=== PATIENT | female | born 1990 | race American Indian/Alaskan Native ===

== ENCOUNTER 2017-04-28 10:21 | Emergency (ER) | payer MEDICAID, OTHER ==
[2017-04-28 10:21] VITALS: BMI 25.7
[2017-04-28 10:32] VITALS: RESP 18
[2017-04-28] MEDS ORDERED: Sodium Chloride 0.9% 1,000 ML IV STA (11:00)
[2017-04-28 11:25] LABS: PH,URINE 5.5 (4.7-8.0); URINE BILIRUBIN NEGATIVE (NEGATIVE); URINE BLOOD MODERATE (NEGATIVE); URINE GLUCOSE (UA) NEGATIVE (NEGATIVE); URINE KETONE NEGATIVE (NEGATIVE); URINE LEUKOCYTE ESTERASE LARGE Leu/uL (NEGATIVE); URINE PROTEIN 100 mg/dL (<30 mg/dL)
[2017-04-28 11:30] LABS: URINE APPEARANCE TURBID (CLEAR); URINE COLOR YELLOW (YELLOW)
--- NOTE | 2017-04-28 11:30 | ED PDOC ---
Arrival/HPI - General Historian: Patient - History of Present Illness Time/Duration: < week Symptom Onset: Gradual Symptom Course: Unchanged Quality: Aching, Cramping Severity Level: 8 Activities at Onset: Rest Context: Home <Xiomy Austin - Last Filed: 04/28/17 13:43> <Ricky Viramontes - Last Filed: 04/29/17 12:52> - General Chief Complaint: Abdominal Pain Time Seen by Provider: 04/28/17 10:35 - History of Present Illness Narrative History of Present Illness (Text): 04/28/17 11:42 This is a 27Y F with PMH of asthma who came to the emergency department for fever, chills, nausea, vomiting and diarrhea x 5 days. She reports she started having fevers 5 days ago. She did not have any sick contacts or recent travel. She then had n/v/d. She is vomiting bile and is not able to tolerate any solid or liquids. Once she has some water she throws up. She also complains of cough and sore throat. Of note, she took Amoxicillin twice daily for 3 days from old medication she had at home as well as OTC cold medication. Today she was to an urgent care and got a Z-pack. She took the first 2 pills and threw them up immediately. Her diarrhea is normal color and watery, but has not had any BM for a few days since she has not been eating. She denies CP, SOB, numbness/ tingling, vision changes. 04/28/17 11:56 (Xiomy Austin) Past Medical History - Provider Review Nursing Documentation Reviewed: Yes - Infectious Disease Hx of Infectious Diseases: None - Cardiac Hx Cardiac Disorders: No - Pulmonary Hx Asthma: Yes - Neurological Hx Neurological Disorder: No - HEENT Hx HEENT Disorder: No - Renal Hx Renal Disorder: No - Endocrine/Metabolic Hx Endocrine Disorders: No - Hematological/Oncological Hx Blood Disorders: No - Integumentary Hx Dermatological Disorder: No - Musculoskeletal/Rheumatological Hx Musculoskeletal Disorders: No - Gastrointestinal Hx Gastrointestinal Disorders: No - Genitourinary/Gynecological Hx Genitourinary Disorders: No - Psychiatric Hx Psychophysiologic Disorder: No Hx Substance Use: Yes (Pot) - Surgical History Other/Comment: Benign cyst removed from right breast. - Anesthesia Hx Anesthesia: No <Xiomy Austin - Last Filed: 04/28/17 13:43> Family/Social History - Physician Review Nursing Documentation Reviewed: Yes Family/Social History: No Known Family HX Smoking Status: Never Smoked Hx Alcohol Use: Yes Frequency of alcohol use: Socially Hx Substance Use: Yes (Pot) <Xiomy Austin - Last Filed: 04/28/17 13:43> Allergies/Home Meds <Xiomy Austin - Last Filed: 04/28/17 13:43> <Ricky Viramontes - Last Filed: 04/29/17 12:52> Allergies/Adverse Reactions: Allergies iodine Allergy (Verified 04/28/17 10:32) ANAPHYLAXIS Shellfish Allergy (Uncoded 04/28/17 10:32) ANAPHYLAXIS Home Medications: Home Meds Medication Instructions Recorded Confirmed Albuterol HFA [Ventolin HFA 90 1 puff INH PRN PRN 09/20/16 09/20/16 mcg/actuation (8 g)] Review of Systems - Review of Systems Constitutional: Fevers Eyes: Normal ENT: Sore Throat Respiratory: Cough. absent: Wheezing Cardiovascular: Normal. absent: Chest Pain, Palpitations Gastrointestinal: Abdominal Pain, Diarrhea, Nausea, Vomiting, Food Intolerance Genitourinary Female: Normal. absent: Dysuria, Frequency Musculoskeletal: Normal Skin: Normal Neurological: Normal. absent: Headache, Dizziness <Xiomy Austin - Last Filed: 04/28/17 13:43> Physical Exam Vital Signs Reviewed: Yes Temperature: Afebrile Blood Pressure: Normal Pulse: Regular Respiratory Rate: Normal Appearance: Positive for: Well-Appearing, Non-Toxic, Comfortable Pain Distress: None Mental Status: Positive for: Alert and Oriented X 3 - Systems Exam Head: Present: Atraumatic, Normocephalic Pupils: Present: PERRL Extroacular Muscles: Present: EOMI Conjunctiva: Present: Normal Mouth: Present: Dry Pharnyx: Present: ERYTHEMA. No: EXUDATE, TONSILS ENLARGED Neck: Present: Normal Range of Motion Respiratory/Chest: Present: Clear to Auscultation, Good Air Exchange. No: Respiratory Distress, Accessory Muscle Use Cardiovascular: Present: Regular Rate and Rhythm, Normal S1, S2. No: Murmurs Abdomen: Present: Tenderness (epigastric), Normal Bowel Sounds. No: Distention , Peritoneal Signs Back: Present: Normal Inspection Upper Extremity: Present: Normal Inspection. No: Cyanosis, Edema Lower Extremity: Present: Normal Inspection. No: Edema Neurological: Present: GCS=15, CN II-XII Intact, Speech Normal Skin: Present: Warm, Dry, Normal Color. No: Rashes Psychiatric: Present: Alert, Oriented x 3, Normal Insight, Normal Concentration <Xiomy Austin - Last Filed: 04/28/17 13:43> <Ricky Viramontes - Last Filed: 04/29/17 12:52> Vital Signs Temp Pulse Resp BP Pulse Ox 04/28/17 14:00 75 18 118/75 100 04/28/17 12:53 99.3 F 82 18 121/70 100 04/28/17 11:10 86 18 147/83 99 04/28/17 10:25 98.6 F 79 18 120/86 99 Medical Decision Making Re-evaluation Time: 12:00 - Lab Interpretations I have reviewed the lab results: Yes Interpretation: All labs normal - RAD Interpretation Potato Chip Maker: ED Physician - EKG Interpretation Interpreted by ED Physician: Yes Type: 12 lead EKG <Xiomy Austin - Last Filed: 04/28/17 13:43> <Ricky Viramontes - Last Filed: 04/29/17 12:52> ED Course and Treatment: 04/28/17 11:45 Impression: This is a 27Y F with PMH of asthma who came to the emergency department for fever, chills, nausea, vomiting and diarrhea x 5 days. Differential Diagnosis included but are not limited to: gastroenteritis versus URI Plan: - CBC, CMP, U/A - CXR - EKG - Zofran, Pepcid, NS bolus - Reassess and disposition Progress Notes: EKG: Ordered, reviewed, and independently interpreted the EKG. Rate : 88 BPM Rhythm : NSR Interpretation : No ST-segment elevations or depressions, no T-wave inversions, normal intervals. Comparison : No previous EKG for comparison. 04/28/17 11:57 Potassium 2.9 on CMP. K replaced IV and orally if tolerated. Patient re-examined , feeling much better. 04/28/17 13:02 (Xiomy Austin) 04/28/17 Patient Seen With Resident: In agreement with resident note which contains more details about the patient. Patient was seen and evaluated with resident. Came up with plan and treatment together. Patient complaining of fever, chills, n/v/d x 5 days. Abd soft with mild epigastric tenderness. No guarding. No rebound. No lower abdominal tenderness. Prior to discharge, patient felt much better and is tolerating PO fluids. She will make sure to follow up with her PMD and return to the ED if symptoms worsen or any other concern. (Ricky Viramontes) - Lab Interpretations Microbiology Results: Microbiology Results 04/28/17 11:32 Urine,Clean Catch Urine Culture - Preliminary Gram Negative Eros Lab Results: 04/28/17 11:40 04/28/17 11:40 Lab Results 04/28/17 11:40: Sodium 142, Potassium 2.9 L*, Chloride 101, Carbon Dioxide 27, Anion Gap 17, BUN 14, Creatinine 0.6, Est GFR ( Amer) > 60, Est GFR (Non- Af Amer) > 60, Random Glucose 121 H, Calcium 9.4, Total Bilirubin 0.6, AST 39 H , ALT 43, Alkaline Phosphatase 69, Total Protein 8.1, Albumin 4.3, Globulin 3.8 , Albumin/Globulin Ratio 1.1 04/28/17 11:40: WBC 10.2, RBC 4.14, Hgb 12.5, Hct 36.4, MCV 87.9, MCH 30.2, MCHC 34.3, RDW 12.5, Plt Count 154, MPV 13.4 H 04/28/17 11:20: Urine Color Yellow, Urine Appearance Turbid, Urine pH 5.5, Ur Specific [place] 1.025, Urine Protein 100 H, Urine Glucose (UA) Negative, Urine Ketones Negative, Urine Blood Moderate H, Urine Nitrate Negative, Urine Bilirubin Negative, Urine Urobilinogen 1.0 H, Ur Leukocyte Esterase Large H, Urine RBC 0 - 2, Urine WBC Tntc, Urine Bacteria Many - RAD Interpretation Radiology Orders: 04/28/17 11:13 CXR [CHEST PORTABLE] [RAD] Stat - Medication Orders Current Medication Orders: Discontinued Medications Famotidine (Pepcid) 20 mg IVP STAT STA Stop: 04/28/17 11:01 Last Admin: 04/28/17 11:26 Dose: 20 mg Sodium Chloride (Sodium Chloride 0.9%) 1,000 mls @ 999 mls/hr IV .Q1H1M STA Stop: 04/28/17 12:00 Last Admin: 04/28/17 11:26 Dose: 999 mls/hr Potassium Chloride (Potassium Chloride 20 Meq/100 Ml) 20 meq in 100 mls @ 50 mls/hr IVPB ONCE STA Stop: 04/28/17 14:03 Last Admin: 04/28/17 12:18 Dose: 50 mls/hr Ondansetron HCl (Zofran Inj) 4 mg IVP STAT STA Stop: 04/28/17 11:01 Last Admin: 04/28/17 11:26 Dose: 4 mg Potassium Chloride (Potassium Chloride Oral Soln) 40 meq PO STAT STA Stop: 04/28/17 12:35 Last Admin: 04/28/17 13:39 Dose: 40 meq <Xiomy Austin - Last Filed: 04/28/17 13:43> - PA / ACADEMIC HOSPITALIST / Resident Statement MD/DO has reviewed & agrees with the documentation as recorded. MD/DO has examined the patient and agrees with the treatment plan. - Scribe Statement The provider has reviewed the documentation as recorded by the Scribe <Ricky Viramontes - Last Filed: 04/29/17 12:52> - Scribe Statement Veronica Arevalo Provider Scribe Attestation: All medical record entries made by the Scribe were at my direction and personally dictated by me. I have reviewed the chart and agree that the record accurately reflects my personal performance of the history, physical exam, medical decision making, and the department course for this patient. I have also personally directed, reviewed, and agree with the discharge instructions and disposition. (Ricky Viramontes) Disposition/Present on Arrival - Present on Arrival Any Indicators Present on Arrival: No History of DVT/PE: No History of Uncontrolled Diabetes: No Urinary Catheter: No History of Decub. Ulcer: No History Surgical Site Infection Following: None - Disposition Have Diagnosis and Disposition been Completed?: Yes Disposition Time: 13:45 Patient Plan: Discharge <Xiomy Austin - Last Filed: 04/28/17 13:43> <Ricky Viramontes - Last Filed: 04/29/17 12:52> - Disposition Diagnosis: Gastroenteritis, UTI (urinary tract infection) Disposition: HOME/ ROUTINE Condition: FAIR Discharge Instructions (ExitCare): Gastroenteritis (ED) Print Language: NEPALI Additional Instructions: Ms. Cavazos, thank you for letting us take care of you today. Your provider was Dr. Austin. You were treated for gastroenteritis and UTI. The emergency medical care you received today was directed at your acute symptoms. If you were prescribed any medication, please fill it and take as directed. It may take several days for your symptoms to resolve. Return to the Emergency Department if your symptoms worsen, do not improve, or if you have any other problems. Please contact your doctor or call one of the physicians/clinics you have been referred to that are listed on the Patient Visit Information form that is included in your discharge packet. Bring any paperwork you were given at discharge with you along with any medications you are taking to your follow up visit. Our treatment cannot replace ongoing medical care by a primary care provider (PCP) outside of the emergency department. Thank you for allowing the [facility] team to be part of your care today. If you had urine culture: It will take several days for the results, if any change in treatment is needed we will contact you. Prescriptions: Cephalexin Susp [Keflex] 250 mg PO Q6H #100 ml Omeprazole 20 mg PO DAILY #10 capsule. Ondansetron ODT [Zofran ODT] 8 mg PO Q8H PRN #15 odt PRN Reason: Nausea/Vomiting Referrals: PCP,NO [Primary Care Provider] - Follow up with primary at [facility] [Outside] - Follow up with primary Forms: [employer] (Spanish)
[2017-04-28 11:31] LABS: URINE RBC 0 - 2 /hpf (0-2)
[2017-04-28 11:32] LABS: URINE BACTERIA MANY (NEG); URINE WBC TNTC /hpf (0-6)
[2017-04-28 11:44] LABS: HEMATOCRIT 36.4 % (36.0-48.0); MEAN CELL VOLUME 87.9 fl (80.0-105.0); MEAN CORPUSCULAR HEMOGLOBIN 30.2 pg (25.0-35.0); MEAN CORPUSCULAR HGB CONC 34.3 g/dl (31.0-37.0); MEAN PLATELET VOLUME 13.4 fl (7.0-11.0); RED CELL DISTRIBUTION WIDTH 12.5 % (11.5-14.5); WHITE BLOOD COUNT 10.2 10^3/ul (4.5-11.0)
[2017-04-28 11:54] LABS: ALB/GLOB RATIO 1.1 (1.1-1.8); ALKALINE PHOSPHATASE 69 U/L (38-126); ALT/SGPT 43 U/L (7-56); AST/SGOT 39 U/L (14-36); BILIRUBIN,TOTAL 0.6 mg/dL (0.2-1.3); BLOOD UREA NITROGEN 14 mg/dL (7-21); CALCIUM 9.4 mg/dL (8.4-10.5); CARBON DIOXIDE 27 mmol/L (21-33); CHLORIDE 101 mmol/L (98-107); GFR AFRICAN-AMERICAN > 60; GLUCOSE,RANDOM 121 mg/dL (70-110); SODIUM 142 mmol/L (132-148); TOTAL PROTEIN 8.1 g/dL (5.8-8.3)
[2017-04-28 12:04] LABS: POTASSIUM 2.9 mmol/L (3.6-5.0)
[2017-04-28] MEDS ORDERED: Potassium Chloride 40 mEq/30 ml LIQ UD PO STA (12:34)
--- NOTE | 2017-04-28 12:43 | RAD ---
HISTORY: shortness of breath, cough COMPARISON: No prior. FINDINGS: LUNGS: No active pulmonary disease. PLEURA: No significant pleural effusion identified, no pneumothorax apparent. CARDIOVASCULAR: Normal. OSSEOUS STRUCTURES: No significant abnormalities. VISUALIZED UPPER ABDOMEN: Normal. OTHER FINDINGS: None. IMPRESSION: No active disease.
[2017-04-28 12:54] VITALS: TEMP 99.3; O2SAT 100
--- NOTE | 2017-04-28 13:21 | CARD ---
APPROVED REPORT EKG Measurement Heart [id number] <Conclusion> Normal sinus rhythm with sinus arrhythmia Normal ECG
[2017-04-28 14:03] VITALS: BP 118/75; PULSE 75
== END 2017-04-28 14:17 | disposition home or self-care (01) ==
LOC: ED 10:21
DX: K52.9 Noninfective gastroenteritis and colitis, unspecified (principal); N39.0 Urinary tract infection, site not specified
CPT/HCPCS: 71010; 80053; 81001; 85027; 87086; 93005; 96374; 96375; 99284; J2405; J3480; J7040

== ENCOUNTER 2017-08-14 14:28 | Inpatient (IN) | payer MEDICAID, SELFPAY ==
[2017-08-14 14:28] VITALS: BMI 25.7
[2017-08-14] MEDS ORDERED: Sodium Chloride 0.9% 1,000 ML IV ONE (14:59)
--- NOTE | 2017-08-14 15:03 | ED PDOC ---
Arrival/HPI - General Chief Complaint: Shortness Of Breath Time Seen by Provider: 08/14/17 14:43 Historian: Patient - History of Present Illness Narrative History of Present Illness (Text): 08/14/17 15:00 A 27 year old female, whose past medical history includes asthma, UTI, and gastroenteritis, presents to the emergency department for generalized not feeling well with body aches and chills. The patient states that about 2-3 months ago went to the emergency department feeling sick and was diagnosed with a UTI. Then 1 month later she still felt the same and went to [facility] where she was evaluate in ICU for 4 days. She was then diagnosed with kidney cysts and stones "her kidney looked like a sponge." Now the patient is here today to help with her generalized sickness and now the patient states she is feeling depressed, can't leave her house, and can not take care of herself. The patient denies any dysuria, hematuria, chest pain, or any other complaints at this time. Time/Duration: Prior to Arrival Symptom Onset: Sudden Symptom Course: Unchanged Activities at Onset: Light, Emotional Upset Context: Home Past Medical History - Provider Review Nursing Documentation Reviewed: Yes - Infectious Disease Hx of Infectious Diseases: None - Cardiac Hx Cardiac Disorders: No - Pulmonary Hx Asthma: Yes - Neurological Hx Neurological Disorder: No - HEENT Hx HEENT Disorder: No - Renal Hx Renal Disorder: No - Endocrine/Metabolic Hx Endocrine Disorders: No - Hematological/Oncological Hx Blood Disorders: No - Integumentary Hx Dermatological Disorder: No - Musculoskeletal/Rheumatological Hx Musculoskeletal Disorders: No - Gastrointestinal Hx Gastrointestinal Disorders: No - Genitourinary/Gynecological Hx Genitourinary Disorders: No - Psychiatric Hx Psychophysiologic Disorder: No Hx Substance Use: Yes (Pot) - Surgical History Other/Comment: Benign cyst removed from right breast. - Anesthesia Hx Anesthesia: No Hx Anesthesia Reactions: No Hx Malignant Hyperthermia: No Family/Social History - Physician Review Nursing Documentation Reviewed: Yes Family/Social History: No Known Family HX Smoking Status: Never Smoked Hx Alcohol Use: Yes Hx Substance Use: Yes (Pot) Allergies/Home Meds Allergies/Adverse Reactions: Allergies iodine Allergy (Verified 04/28/17 10:32) ANAPHYLAXIS Shellfish Allergy (Uncoded 04/28/17 10:32) ANAPHYLAXIS Home Medications: Home Meds Medication Instructions Recorded Confirmed Albuterol HFA [Ventolin HFA 90 1 puff INH PRN PRN 09/20/16 09/20/16 mcg/actuation (8 g)] Review of Systems - Physician Review All systems were reviewed & negative as marked: Yes - Review of Systems Constitutional: Other (generalized sickness). absent: Fevers Genitourinary Female: absent: Dysuria Psychiatric: Depression Physical Exam Vital Signs Reviewed: Yes Vital Signs Temp Pulse Resp BP Pulse Ox 08/14/17 18:35 108 H 18 113/70 100 08/14/17 14:28 103.1 F H 140 H 20 108/73 19 L Temperature: Febrile Blood Pressure: Normal Pulse: Tachycardic Appearance: Positive for: Well-Appearing, Non-Toxic, Comfortable, Other ( emotionally upset ) Pain Distress: None Mental Status: Positive for: Alert and Oriented X 3 - Systems Exam Head: Present: Atraumatic, Normocephalic Pupils: Present: PERRL Extroacular Muscles: Present: EOMI Conjunctiva: Present: Normal Mouth: Present: Moist Mucous Membranes Neck: Present: Normal Range of Motion Respiratory/Chest: Present: Clear to Auscultation, Good Air Exchange. No: Respiratory Distress, Accessory Muscle Use Cardiovascular: Present: Regular Rate and Rhythm, Normal S1, S2. No: Murmurs Abdomen: Present: Normal Bowel Sounds. No: Tenderness, Distention, Peritoneal Signs Back: Present: Normal Inspection Upper Extremity: Present: Normal Inspection. No: Cyanosis, Edema Lower Extremity: Present: Normal Inspection. No: Edema Neurological: Present: GCS=15, CN II-XII Intact, Speech Normal Skin: Present: Warm, Dry, Normal Color. No: Rashes Psychiatric: Present: Alert, Oriented x 3, Normal Insight, Normal Concentration , Depressed Mood. No: Normal Mood Medical Decision Making ED Course and Treatment: 08/14/17 15:02 Impression: A 27 year old female with generalized sickness and depression Differential Diagnosis included but are not limited to: Plan: -- VBG -- Tylenol, IV Fluids -- PES Eval -- Urinalysis -- Reassess and disposition Progress Notes: - Lab Interpretations Lab Results: 08/14/17 15:10 08/14/17 15:10 Lab Results 08/14/17 16:25: Urine Color Yellow, Urine Appearance Sl cloudy, Urine pH 6.0, Ur Specific [place] 1.010, Urine Protein Trace H, Urine Glucose (UA) Negative, Urine Ketones Trace H, Urine Blood Moderate H, Urine Nitrate Negative, Urine Bilirubin Negative, Urine Urobilinogen 0.2, Ur Leukocyte Esterase Small H, Urine RBC 5 - 10, Urine WBC Tntc, Ur Epithelial Cells 6 - 8, Urine Bacteria Mod 08/14/17 15:10: pO2 46, VBG pH 7.38, VBG pCO2 44.0, VBG HCO3 26.0, VBG Total CO2 27.4, VBG O2 Sat (Calc) 90.0 H, VBG Base Excess 0.5, VBG Potassium 3.8, Sodium 138.0, Chloride 104.0, Glucose 116 H, Lactate 1.6, FiO2 21.0, Venous Blood Potassium 3.8 08/14/17 15:10: Alcohol, Quantitative < 10 08/14/17 15:10: Sodium 139, Chloride 103, Potassium 3.6, Carbon Dioxide 24, Anion Gap 15, BUN 12, Creatinine 0.8, Est GFR ( Amer) > 60, Est GFR (Non- Af Amer) > 60, Random Glucose 114 H, Calcium 9.4, Total Bilirubin 0.6, AST 26, ALT 19, Alkaline Phosphatase 63, Total Protein 8.2, Albumin 4.1, Globulin 4.1, Albumin/Globulin Ratio 1.0 L 08/14/17 15:10: WBC 18.6 H D, RBC 4.30, Hgb 12.3, Hct 37.9, MCV 88.1, MCH 28.6, MCHC 32.5, RDW 14.7 H, Plt Count 185, MPV 12.4 H, Gran % 86.9 H, Lymph % (Auto) 3.8 L, [place] % (Auto) 9.2 H, Eos % (Auto) 0.0 L, Baso % (Auto) 0.1, Gran # 16.18 H, Lymph # 0.7 L, [place] # 1.7 H, Eos # 0.0, Baso # 0.01, Neutrophils % (Manual) 91 H, Band Neutrophils % 1, Lymphocytes % (Manual) 5 L, Monocytes % (Manual) 3 - Medication Orders Current Medication Orders: Discontinued Medications Acetaminophen (Tylenol 325mg Tab) 975 mg PO ONCE PRN PRN Reason: Fever >100.4 F Last Admin: 08/14/17 15:21 Dose: 975 mg MAR Pain/Vitals Document 08/14/17 15:21 EQ (Rec: 08/14/17 15:21 EQ [id number]) Pain Reassessment Is This A Pain ReAssessment? No Sleep Is patient sleeping during reassessment? No Presence of Pain Presence of Pain Yes Pain Scale Used Pain Scale Used Numeric Sodium Chloride (Sodium Chloride 0.9%) 1,000 mls @ 2,000 mls/hr IV .Q30M ONE Stop: 08/14/17 15:28 Last Admin: 08/14/17 15:21 Dose: 2,000 mls/hr eMAR Start Stop Document 08/14/17 15:21 EQ (Rec: 08/14/17 15:21 EQ [id number]) Intravenous Solution Start Date 08/14/17 Start Time 15:21 Vancomycin HCl (Vancomycin 1gm) 1 gm in 250 mls @ 167 mls/hr IVPB STAT STA Stop: 08/14/17 18:42 Last Admin: 08/14/17 17:39 Dose: 167 mls/hr eMAR Start Stop Document 08/14/17 17:39 EQ (Rec: 08/14/17 17:39 EQ [id number]) Intravenous Solution Start Date 08/14/17 Start Time 17:39 Cefepime HCl (Maxipime 2gm) 2 gm in 100 mls @ 100 mls/hr IVPB STAT STA Stop: 08/14/17 18:14 Last Admin: 08/14/17 19:14 Dose: 100 mls/hr eMAR Start Stop Document 08/14/17 19:14 EQ (Rec: 08/14/17 19:14 EQ [id number]) Intravenous Solution Start Date 08/14/17 Start Time 19:14 - Scribe Statement The provider has reviewed the documentation as recorded by the Zeke Hall Provider Scribe Attestation: All medical record entries made by the Scribe were at my direction and personally dictated by me. I have reviewed the chart and agree that the record accurately reflects my personal performance of the history, physical exam, medical decision making, and the department course for this patient. I have also personally directed, reviewed, and agree with the discharge instructions and disposition. Disposition/Present on Arrival - Present on Arrival Any Indicators Present on Arrival: No History of DVT/PE: No History of Uncontrolled Diabetes: No Urinary Catheter: No History of Decub. Ulcer: No History Surgical Site Infection Following: None - Disposition Have Diagnosis and Disposition been Completed?: Yes Diagnosis: Pyelonephritis Disposition: HOSPITALIZED Disposition Time: 19:30 Patient Plan: Admission Condition: IMPROVED Forms: [facility] ([place]an)
[2017-08-14 15:43] LABS: BASO # 0.01 K/mm3 (0.0-2.0); BASO % 0.1 % (0.0-3.0); GRAN # 16.18 (1.4-6.5); GRAN % 86.9 % (50.0-68.0); HEMOGLOBIN 12.3 g/dL (12.0-16.0); LYMPH # 0.7 (1.2-3.4); LYMPH % 3.8 % (22.0-35.0); MEAN CELL VOLUME 88.1 fl (80.0-105.0); MEAN CORPUSCULAR HEMOGLOBIN 28.6 pg (25.0-35.0); MEAN CORPUSCULAR HGB CONC 32.5 g/dl (31.0-37.0); MEAN PLATELET VOLUME 12.4 fl (7.0-11.0); MONO # 1.7 (0.1-0.6); MONO % 9.2 % (1.0-6.0); PLATELET COUNT 185 10^3/uL (120.0-450.0); RED CELL DISTRIBUTION WIDTH 14.7 % (11.5-14.5); WHITE BLOOD COUNT 18.6 10^3/ul (4.5-11.0)
[2017-08-14 15:53] LABS: ALBUMIN 4.1 g/dL (3.0-4.8); ALT/SGPT 19 U/L (7-56); AST/SGOT 26 U/L (14-36); BLOOD UREA NITROGEN 12 mg/dL (7-21); CALCIUM 9.4 mg/dL (8.4-10.5); GFR AFRICAN-AMERICAN > 60; GFR NON-AFRICAN AMERICAN > 60
[2017-08-14 15:54] LABS: VENOUS BLOOD GAS BASE EXCESS 0.5 mmol/L (0.0-2.0); VENOUS BLOOD GAS PO2 46 mm/Hg (30-55); VENOUS BLOOD PH 7.38 (7.32-7.43)
[2017-08-14 16:29] LABS: BAND 1 % (0-2); LYMPHOCYTE 5 % (22.0-35.0); NEUTROPHIL 91 % (50.0-70.0)
[2017-08-14 16:30] LABS: MONOCYTE 3 % (1.0-6.0)
[2017-08-14 16:52] LABS: URINE APPEARANCE SL CLOUDY (CLEAR); URINE BILIRUBIN NEGATIVE (NEGATIVE); URINE BLOOD MODERATE (NEGATIVE); URINE COLOR YELLOW (YELLOW); URINE GLUCOSE (UA) NEGATIVE (NEGATIVE); URINE LEUKOCYTE ESTERASE SMALL Leu/uL (NEGATIVE); URINE NITRATE NEGATIVE (NEGATIVE); URINE PROTEIN TRACE mg/dL (<30 mg/dL); URINE UROBILINOGEN 0.2 E.U./dL (<1 E.U./dL)
[2017-08-14 16:56] LABS: URINE WBC TNTC /hpf (0-6)
[2017-08-14 16:58] LABS: URINE BACTERIA MOD (NEG)
[2017-08-14] MEDS ORDERED: Cefepime (Maxipime) 1 g Inj IVPB STA (17:10)
[2017-08-14] MEDS ORDERED: Vancomycin 1 g Inj IVPB STA (17:11)
[2017-08-14] MEDS ORDERED: Vancomycin 1gm in NS 250ml IVPB STA (17:13)
[2017-08-14] MEDS ORDERED: Cefepime IV 2 gm in NS 2 GM/100 ML BAG IVPB STA (17:15)
[2017-08-14 20:22] LABS: BASO # 0.02 K/mm3 (0.0-2.0); BASO % 0.1 % (0.0-3.0); GRAN # 18.21 (1.4-6.5); GRAN % 84.3 % (50.0-68.0); HEMOGLOBIN 11.4 g/dL (12.0-16.0); LYMPH # 1.7 (1.2-3.4); LYMPH % 8.1 % (22.0-35.0); MEAN CELL VOLUME 88.8 fl (80.0-105.0); MEAN CORPUSCULAR HEMOGLOBIN 28.5 pg (25.0-35.0); MEAN CORPUSCULAR HGB CONC 32.1 g/dl (31.0-37.0); MEAN PLATELET VOLUME 12.1 fl (7.0-11.0); MONO # 1.6 (0.1-0.6); MONO % 7.5 % (1.0-6.0); RED CELL DISTRIBUTION WIDTH 14.8 % (11.5-14.5); WHITE BLOOD COUNT 21.6 10^3/ul (4.5-11.0)
[2017-08-14 20:55] LABS: ALBUMIN 3.6 g/dL (3.0-4.8); BLOOD UREA NITROGEN 9 mg/dL (7-21); GFR AFRICAN-AMERICAN > 60; GFR NON-AFRICAN AMERICAN > 60; MAGNESIUM 1.3 mg/dL (1.7-2.2)
[2017-08-14 20:56] LABS: ALT/SGPT 20 U/L (7-56); AST/SGOT 21 U/L (14-36)
[2017-08-14 21:01] LABS: BARBITURATES, UR NEGATIVE (NEGATIVE); BENZODIAZEPINES, UR NEGATIVE (NEGATIVE); OPIATES, UR NEGATIVE (NEGATIVE); PHENCYCLIDINE, UR NEGATIVE (NEGATIVE)
[2017-08-14] MEDS ORDERED: Sodium Chloride 0.9% 1,000 ML IV STA (21:49)
[2017-08-14] MEDS ORDERED: Ciprofloxacin 400mg/200ml D5W 400 MG/200 ML BAG IVPB SCH (22:00)
[2017-08-14] MEDS: Sodium Chloride 0.9% 1,000 ML IV SCH (22:00)
[2017-08-15] MEDS ORDERED: Magnesium Sulfate 2 GM in Sodium Chloride 0.9% 100 ML IVPB ONE (00:18)
--- NOTE | 2017-08-15 05:13 | CP.PCM.HP ---
History of Present Illness - History of Present Illness History of Present Illness: Alisa Ruvalcaba PGY1 - Internal Medicine H&P CC: Body aches HPI: 27 yo F with PMH of migraines, asthma, and multiple UTI's in the past 3 months presents complaining of diffuse body aches. She also reports LLQ abdominal pain and left sided low back pain. These symptoms started yesterday morning (day of admission). She denies fever, chills, dysuria, hematuria, chest pain, SOB, cough, diarrhea, constipation. She does report increased urinary frequency, nausea, and vomiting. She denies any sick contacts or recent travel. She has had these symptoms in the past, and was diagnosed with a UTI and treated with oral medications once, but on another occasion, was admitted and reportedly treated in the ICU for 3-4 days at [facility]. She reports that during that admission, she had imaging of the kidney that showed multiple stones and cysts. She also reports extreme sadness, depression, guild, anhedonia , sleeplessness as well as sleeping too much, loss of appetite, lack of energy. She was treated for depression in the past, but without any medications. She does report a history of suicide attempts, twice, in adolescence. She now denies any thoughts of suicide, or violence towards others. 12 point ROS was obtained and was negative except as above. PMH: migraines, asthma, and multiple UTI's PSH: Denies Soc: Denies tobacco, alcohol, or illicits FHx: DM, "heart condition" in father All: Iodine (throat swells, SOB), shellfish Present on Admission - Present on Admission Any Indicators Present on Admission: No Past Patient History - Infectious Disease Hx of Infectious Diseases: None - Past Social History Smoking Status: Never Smoked - CARDIAC Hx Cardiac Disorders: No - PULMONARY Hx Asthma: Yes - NEUROLOGICAL Hx Neurological Disorder: No - HEENT Hx HEENT Problems: No - RENAL Hx Chronic Kidney Disease: No Hx Pyelonephritis: Yes - ENDOCRINE/METABOLIC Hx Endocrine Disorders: No - HEMATOLOGICAL/ONCOLOGICAL Hx Blood Disorders: No - INTEGUMENTARY Hx Dermatological Problems: No - MUSCULOSKELETAL/RHEUMATOLOGICAL Hx Musculoskeletal Disorders: No Hx Falls: No - GASTROINTESTINAL Hx Gastrointestinal Disorders: No - GENITOURINARY/GYNECOLOGICAL Hx Genitourinary Disorders: No - PSYCHIATRIC Hx Psychophysiologic Disorder: No Hx Substance Use: Yes - SURGICAL HISTORY Other/Comment: Benign cyst removed from right breast. - ANESTHESIA Hx Anesthesia: No Hx Anesthesia Reactions: No Hx Malignant Hyperthermia: No Meds Allergies/Adverse Reactions: Allergies Allergy/AdvReac Type Severity Reaction Status Date / Time iodine Allergy ANAPHYLAXIS Verified 04/28/17 10:32 Shellfish Allergy ANAPHYLAXIS Uncoded 04/28/17 10:32 Physical Exam - Constitutional Appears: Non-toxic, No Acute Distress - Head Exam Head Exam: ATRAUMATIC, NORMOCEPHALIC - Eye Exam Eye Exam: EOMI, Normal appearance - ENT Exam ENT Exam: Mucous Membranes Moist - Neck Exam Neck exam: Positive for: Normal Inspection - Respiratory Exam Respiratory Exam: Clear to Auscultation Bilateral, NORMAL BREATHING PATTERN - Cardiovascular Exam Cardiovascular Exam: REGULAR RHYTHM, +S1, +S2 - GI/Abdominal Exam GI & Abdominal Exam: Normal Bowel Sounds, Soft, Tenderness (Suprapubic). absent : Distended, Firm, Guarding, Organomegaly, Rebound, Rigid - Extremities Exam Extremities exam: Negative for: calf tenderness, pedal edema - Back Exam Additional comments: Patient had mild CVA tenderness to Lloyds maneuver, but none to palpation - Neurological Exam Neurological exam: Alert, CN II-XII Intact, Oriented x3 - Psychiatric Exam Psychiatric exam: Depressed, Flat Affect - Skin Skin Exam: Dry, Intact, Normal Color, Warm Results - Vital Signs Recent Vital Signs: Last Vital Signs Temp 102.3 F H 08/14/17 21:50 Pulse 120 H 08/14/17 21:50 Resp 20 08/14/17 21:50 BP 109/58 L 08/14/17 21:50 Pulse Ox 100 08/14/17 21:30 - Labs Result Diagrams: 08/14/17 20:10 08/14/17 20:10 Labs: Laboratory Results - last 24 hr 08/14/17 08/14/17 08/14/17 20:10 20:10 20:10 WBC 21.6 H RBC 4.00 Hgb 11.4 L Hct 35.5 L MCV 88.8 MCH 28.5 MCHC 32.1 RDW 14.8 H Plt Count 177 MPV 12.1 H Gran % 84.3 H Lymph % (Auto) 8.1 L Williams % (Auto) 7.5 H Eos % (Auto) 0.0 L Baso % (Auto) 0.1 Gran # 18.21 H Lymph # 1.7 Williams # 1.6 H Eos # 0.0 Baso # 0.02 Sodium 139 Potassium 3.8 Chloride 107 Carbon Dioxide 21 Anion Gap 15 BUN 9 Creatinine 0.6 L Est GFR ( Amer) > 60 Est GFR (Non-Af Amer) > 60 Random Glucose 115 H Calcium 8.0 L Magnesium 1.3 L Total Bilirubin 0.7 AST 21 ALT 20 Alkaline Phosphatase 53 Total Protein 7.2 Albumin 3.6 Globulin 3.6 Albumin/Globulin Ratio 1.0 L Urine Opiates Screen Urine Methadone Screen Ur Barbiturates Screen Ur Phencyclidine Scrn Ur Amphetamines Screen U Benzodiazepines Scrn U Oth Cocaine Metabols U Cannabinoids Screen Alcohol, Quantitative < 10 08/14/17 20:30 WBC RBC Hgb Hct MCV MCH MCHC RDW Plt Count MPV Gran % Lymph % (Auto) Williams % (Auto) Eos % (Auto) Baso % (Auto) Gran # Lymph # Williams # Eos # Baso # Sodium Potassium Chloride Carbon Dioxide Anion Gap BUN Creatinine Est GFR ( Amer) Est GFR (Non-Af Amer) Random Glucose Calcium Magnesium Total Bilirubin AST ALT Alkaline Phosphatase Total Protein Albumin Globulin Albumin/Globulin Ratio Urine Opiates Screen Negative Urine Methadone Screen Negative Ur Barbiturates Screen Negative Ur Phencyclidine Scrn Negative Ur Amphetamines Screen Negative U Benzodiazepines Scrn Negative U Oth Cocaine Metabols Negative U Cannabinoids Screen Positive H Alcohol, Quantitative Assessment & Plan - Assessment and Plan (Free Text) Assessment: 27 yo F with PMH of migraines, asthma, and multiple UTI's in the past 3 months presents complaining of diffuse body aches. She also reports LLQ abdominal pain and left sided low back pain. Diffuse body aches - SIRS (3/4) vs SEPSIS 2/2 UTI - Body aches likely 2/2 Sepsis 2/2 UTI - Patient had 3/4 SIRS criteria (fever, leukocytosis, tachycardia) and presumed source is UTI - UA showed +LE, -Nit, pyuria and bacteruria with symptoms (urinary frequency) - Blood culture, urine culture, and procal ordered - Patient given 2L bolus followed by NS @100cc/hr maintenance fluid - Patient received cefepime and vanc in ER; deescalated to cipro considering likely source and prior sucsceptibilities - Zofran PRN for nausea - Toradol PRN for pain - Tylenol PRN for fever - Renal US ordered to confirm presence of polycystic kidney or multiple large stones, as patient reports - ID consult requested; appreciate recs Depression - Patient reports classic constellation of symptoms of depression; has prior history of depression with suicidal attempts; tearful on exam with flat affect - Patient now denies SI and HI - Requested Psych consult, appreciate recs GI PPx: Pepcid DVT Ppx: SCDs Patient seen, discussed, and reviewed with attending Dr. Garcia
[2017-08-15] MEDS ORDERED: Sodium Chloride 0.9% 500 ML IV STA (05:38)
[2017-08-15 07:48] LABS: BASO # 0.01 K/mm3 (0.0-2.0); BASO % 0.1 % (0.0-3.0); GRAN # 12.7 (1.4-6.5); GRAN % 82.2 % (50.0-68.0); HEMOGLOBIN 10.3 g/dL (12.0-16.0); LYMPH # 1.2 (1.2-3.4); LYMPH % 7.5 % (22.0-35.0); MEAN CELL VOLUME 88.2 fl (80.0-105.0); MEAN CORPUSCULAR HEMOGLOBIN 27.7 pg (25.0-35.0); MEAN CORPUSCULAR HGB CONC 31.4 g/dl (31.0-37.0); MEAN PLATELET VOLUME 12.1 fl (7.0-11.0); MONO # 1.6 (0.1-0.6); MONO % 10.2 % (1.0-6.0); RBC 3.72 10^6/uL (3.5-6.1); RED CELL DISTRIBUTION WIDTH 14.8 % (11.5-14.5); WHITE BLOOD COUNT 15.5 10^3/ul (4.5-11.0)
[2017-08-15 08:18] LABS: ALB/GLOB RATIO 0.9 (1.1-1.8); ALBUMIN 3.3 g/dL (3.0-4.8); ALT/SGPT 27 U/L (7-56); AST/SGOT 28 U/L (14-36); BLOOD UREA NITROGEN 10 mg/dL (7-21); CALCIUM 8.1 mg/dL (8.4-10.5); GFR AFRICAN-AMERICAN > 60; GFR NON-AFRICAN AMERICAN > 60; MAGNESIUM 1.9 mg/dL (1.7-2.2)
[2017-08-15] MEDS ORDERED: Potassium Chloride 20 mEq ER Tab PO STA (08:55)
[2017-08-15] MEDS ORDERED: Potassium Phosphate 15 MMOLE in Sodium Chloride 0.9% 250 ML IVPB ONE (08:59)
[2017-08-15] MEDS ORDERED: Ciprofloxacin 400mg/200ml D5W 400 MG/200 ML BAG IVPB SCH (10:00)
[2017-08-15] MEDS: Potassium & Sodium Phosphate PO SCH ×3 (10:56→18:59)
--- NOTE | 2017-08-15 11:07 | RAD ---
HISTORY: fever; r/p PNA COMPARISON: Comparison chest 04/28/2017. TECHNIQUE: Chest PA and lateral FINDINGS: LUNGS: No active pulmonary disease. PLEURA: No significant pleural effusion identified. No pneumothorax apparent. CARDIOVASCULAR: Normal. OSSEOUS STRUCTURES: No significant abnormalities. VISUALIZED UPPER ABDOMEN: Normal. OTHER FINDINGS: None. IMPRESSION: No active disease.
--- NOTE | 2017-08-15 11:09 | US ---
PROCEDURE: Ultrasound of the Kidneys HISTORY: frequent UTI COMPARISON: None available. TECHNIQUE: Sonogram of the kidneys. FINDINGS: RIGHT KIDNEY: Right kidney measures approximate 16.25 x5 0.9 x 5.8 cm. There is a cystic focus upper pole right kidney that could represent a a septated cyst or 2 smaller adjacent cysts. Entire focus measures approximately 2.6 x 1.8 x 2.2 cm follow-up at interval recommended. Normal in size, contour and echogenicity. No stone, solid mass lesion or hydronephrosis visualized. LEFT KIDNEY: The left kidney measures approximately 12.9 x 5.4 x 4.2 cm. There is a small 7 mm echogenic focus lower pole left kidney that most likely represents is nonobstructing calculus. Normal in size, contour and echogenicity. No stone, solid mass lesion or hydronephrosis visualized. OTHER FINDINGS: None. IMPRESSION: Septated cyst or 2 smaller adjacent cysts upper pole right kidney. . Nonobstructing calculus lower pole left kidney. No evidence of hydronephrosis.
[2017-08-15] MEDS: cefTRIAXone 2 GM IN NS 2 GM/100 ML BAG IVPB SCH (11:53)
--- NOTE | 2017-08-15 19:16 | CON ---
DATE: 08/15/2017 CHIEF COMPLAINT: Left flank pain times one day. HISTORY OF PRESENT ILLNESS: This is a 27-year-old female who was born in [facility], who has a history of asthma, history of kidney cyst, history of kidney stone, who has had a very benign right breast surgery in the past, who is allergic to iodine and shellfish, admitted with flank pain and found to have fevers, also chills; and the patient has dysuria, frequency; and no chest pain, shortness of breath. No hemoptysis, no headaches. PAST MEDICAL HISTORY: Significant for asthma, kidney stones, and kidney cyst. PAST SURGICAL HISTORY: Significant for benign right breast. ALLERGIES: THE PATIENT IS ALLERGIC TO IODINE AND SHELLFISH. MEDICATIONS: At home include the patient to be on Zofran, omeprazole, and inhaler. PHYSICAL EXAMINATION: VITAL SIGNS: Temperature is 102, heart rate of 120, blood pressure is 109/60, respiratory rate of 18. HEENT: Unremarkable. NECK: Supple. CARDIOPULMONARY: Heart exam, normal S1 and S2. LUNGS: Have decreased breath sounds. ABDOMEN: Soft, nontender. LABORATORY DATA: Laboratory examination reveals a white count of 18,000, hemoglobin of 12, platelets of 185. Chemistries reveal a BUN of 12, creatinine of 0.8. Urinalysis reveals too numerous to count wbc's and reveals screen to be positive for cannabinoids and emergency room chart is reviewed. ASSESSMENT AND PLAN: This is a 27-year-old white female with asthma, kidney stones and kidney cyst, who also had a history of sexually transmitted disease of Chlamydia at the age of 16, now presents with sepsis and with a left pyelonephritis. She lives with her boyfriend and they are monogamous as per patient. Sepsis with a left pyelonephritis. We will order ceftriaxone and also ordered doxycycline. Also ordered human immunodeficiency virus test and sexually transmitted disease workup. We will order urine for nucleic acid test for Chlamydia and gonorrhea in addition to human immunodeficiency virus and syphilis workup including an RPR and FTA. The patient's urinalysis is noted, and the patient had a urine test, although unable to find the results and told it was done, and it was negative. We will repeat the HCG in the urine. We will follow closely with you. Catarino العلي MD [facility] # [id number]
[2017-08-15] MEDS: Sodium Chloride 0.9% 1,000 ML IV SCH (19:52)
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
[2017-08-16] MEDS: Sodium Chloride 0.9% 1,000 ML IV SCH (06:01)
[2017-08-16 07:52] VITALS: RESP 18
[2017-08-16 08:16] LABS: BASO # 0.01 K/mm3 (0.0-2.0); BASO % 0.1 % (0.0-3.0); EOS # 0.1 (0.0-0.7); EOS % 0.6 % (1.5-5.0); GRAN # 6.44 (1.4-6.5); GRAN % 64.8 % (50.0-68.0); HEMOGLOBIN 9.8 g/dL (12.0-16.0); LYMPH # 1.9 (1.2-3.4); LYMPH % 18.9 % (22.0-35.0); MEAN CELL VOLUME 88.5 fl (80.0-105.0); MEAN CORPUSCULAR HEMOGLOBIN 27.5 pg (25.0-35.0); MEAN PLATELET VOLUME 12.9 fl (7.0-11.0); MONO # 1.6 (0.1-0.6); MONO % 15.6 % (1.0-6.0); RBC 3.57 10^6/uL (3.5-6.1); RED CELL DISTRIBUTION WIDTH 15.1 % (11.5-14.5); WHITE BLOOD COUNT 9.9 10^3/ul (4.5-11.0)
[2017-08-16 08:24] LABS: ALB/GLOB RATIO 0.9 (1.1-1.8); ALBUMIN 3.2 g/dL (3.0-4.8); ALT/SGPT 27 U/L (7-56); AST/SGOT 25 U/L (14-36); BLOOD UREA NITROGEN 8 mg/dL (7-21); CALCIUM 8.4 mg/dL (8.4-10.5); GFR AFRICAN-AMERICAN > 60; GFR NON-AFRICAN AMERICAN > 60
[2017-08-16] MEDS: cefTRIAXone 2 GM IN NS 2 GM/100 ML BAG IVPB SCH (09:59)
[2017-08-16] MEDS: Potassium & Sodium Phosphate PO SCH (10:03)
[2017-08-16 10:29] LABS: MAGNESIUM 1.8 mg/dL (1.7-2.2)
--- NOTE | 2017-08-16 15:53 | CP.PCM.DIS ---
<Rey Burkett - Last Filed: 08/17/17 05:30> Provider - Provider Date of Admission: 08/14/17 19:21 Attending physician: Leslie Grace MD Primary care physician: NO PRIMARY CARE PROVIDER Consults: ID: [id number] Time Spent in preparation of Discharge (in minutes): 45 Hospital Course - Lab Results Lab Results: Most Recent Lab Values WBC 9.9 10^3/ul (4.5-11.0) D 08/16/17 07:30 RBC 3.57 10^6/uL (3.5-6.1) 08/16/17 07:30 Hgb 9.8 g/dL (12.0-16.0) L 08/16/17 07:30 Hct 31.6 % (36.0-48.0) L 08/16/17 07:30 MCV 88.5 fl (80.0-105.0) 08/16/17 07:30 MCH 27.5 pg (25.0-35.0) 08/16/17 07:30 MCHC 31.0 g/dl (31.0-37.0) 08/16/17 07:30 RDW 15.1 % (11.5-14.5) H 08/16/17 07:30 Plt Count 132 10^3/uL (120.0-450.0) 08/16/17 07:30 MPV 12.9 fl (7.0-11.0) H 08/16/17 07:30 Gran % 64.8 % (50.0-68.0) 08/16/17 07:30 Lymph % (Auto) 18.9 % (22.0-35.0) L 08/16/17 07:30 [place] % (Auto) 15.6 % (1.0-6.0) H 08/16/17 07:30 Eos % (Auto) 0.6 % (1.5-5.0) L 08/16/17 07:30 Baso % (Auto) 0.1 % (0.0-3.0) 08/16/17 07:30 Gran # 6.44 (1.4-6.5) 08/16/17 07:30 Lymph # 1.9 (1.2-3.4) 08/16/17 07:30 [place] # 1.6 (0.1-0.6) H 08/16/17 07:30 Eos # 0.1 (0.0-0.7) 08/16/17 07:30 Baso # 0.01 K/mm3 (0.0-2.0) 08/16/17 07:30 Neutrophils % (Manual) 91 % (50.0-70.0) H 08/14/17 15:10 Band Neutrophils % 1 % (0-2) 08/14/17 15:10 Lymphocytes % (Manual) 5 % (22.0-35.0) L 08/14/17 15:10 Monocytes % (Manual) 3 % (1.0-6.0) 08/14/17 15:10 pO2 46 mm/Hg (30-55) 08/14/17 15:10 VBG pH 7.38 (7.32-7.43) 08/14/17 15:10 VBG pCO2 44.0 (40-60) 08/14/17 15:10 VBG HCO3 26.0 mmol/l (21-28) 08/14/17 15:10 VBG Total CO2 27.4 mmol.L (22-28) 08/14/17 15:10 VBG O2 Sat (Calc) 90.0 % (40-65) H 08/14/17 15:10 VBG Base Excess 0.5 mmol/L (0.0-2.0) 08/14/17 15:10 VBG Potassium 3.8 mmol/L (3.6-5.2) 08/14/17 15:10 Sodium 138.0 mmol/L (132-148) 08/14/17 15:10 Chloride 104.0 mmol/L (98-107) 08/14/17 15:10 Glucose 116 mg/dl (65-105) H 08/14/17 15:10 Lactate 1.6 mmol/L (0.7-2.1) 08/14/17 15:10 FiO2 21.0 % 08/14/17 15:10 Sodium 141 mmol/L (132-148) 08/16/17 07:30 Potassium 3.8 mmol/L (3.6-5.0) 08/16/17 07:30 Chloride 111 mmol/L (98-107) H 08/16/17 07:30 Carbon Dioxide 23 mmol/L (21-33) 08/16/17 07:30 Anion Gap 11 (10-20) 08/16/17 07:30 BUN 8 mg/dL (7-21) 08/16/17 07:30 Creatinine 0.5 mg/dl (0.7-1.2) L 08/16/17 07:30 Est GFR ( Amer) > 60 08/16/17 07:30 Est GFR (Non-Af Amer) > 60 08/16/17 07:30 Random Glucose 107 mg/dL (70-110) 08/16/17 07:30 Calcium 8.4 mg/dL (8.4-10.5) 08/16/17 07:30 Phosphorus 2.2 mg/dL (2.5-4.5) L 08/16/17 07:30 Magnesium 1.8 mg/dL (1.7-2.2) 08/16/17 07:30 Total Bilirubin 0.4 mg/dL (0.2-1.3) 08/16/17 07:30 AST 25 U/L (14-36) 08/16/17 07:30 ALT 27 U/L (7-56) 08/16/17 07:30 Alkaline Phosphatase 58 U/L (38-126) 08/16/17 07:30 Total Protein 6.7 g/dL (5.8-8.3) 08/16/17 07:30 Albumin 3.2 g/dL (3.0-4.8) 08/16/17 07:30 Globulin 3.5 gm/dL 08/16/17 07:30 Albumin/Globulin Ratio 0.9 (1.1-1.8) L 08/16/17 07:30 Procalcitonin 0.53 NG/ML (0.19-0.49) H 08/15/17 07:20 TSH 3rd Generation 0.53 mIU/mL (0.46-4.68) 08/15/17 13:00 Venous Blood Potassium 3.8 mmol/L (3.6-5.2) 08/14/17 15:10 Urine Color Yellow (YELLOW) 08/14/17 16:25 Urine Appearance Sl cloudy (CLEAR) 08/14/17 16:25 Urine pH 6.0 (4.7-8.0) 08/14/17 16:25 Ur Specific [place] 1.010 (1.005-1.035) 08/14/17 16:25 Urine Protein Trace mg/dL (<30 mg/dL) H 08/14/17 16:25 Urine Glucose (UA) Negative mg/dL (NEGATIVE) 08/14/17 16:25 Urine Ketones Trace mg/dL (NEGATIVE) H 08/14/17 16:25 Urine Blood Moderate (NEGATIVE) H 08/14/17 16:25 Urine Nitrate Negative (NEGATIVE) 08/14/17 16:25 Urine Bilirubin Negative (NEGATIVE) 08/14/17 16:25 Urine Urobilinogen 0.2 E.U./dL (<1 E.U./dL) 08/14/17 16:25 Ur Leukocyte Esterase Small Tiny/uL (NEGATIVE) H 08/14/17 16:25 Urine RBC 5 - 10 /hpf (0-2) 08/14/17 16:25 Urine WBC Tntc /hpf (0-6) 08/14/17 16:25 Ur Epithelial Cells 6 - 8 /hpf (0-5) 08/14/17 16:25 Urine Bacteria Mod (NEG) 08/14/17 16:25 Urine HCG, Qual Negative (NEGATIVE) 08/15/17 13:39 Urine Opiates Screen Negative (NEGATIVE) 08/14/17 20:30 Urine Methadone Screen Negative (NEGATIVE) 08/14/17 20:30 Ur Barbiturates Screen Negative (NEGATIVE) 08/14/17 20:30 Ur Phencyclidine Scrn Negative (NEGATIVE) 08/14/17 20:30 Ur Amphetamines Screen Negative (NEGATIVE) 08/14/17 20:30 U Benzodiazepines Scrn Negative (NEGATIVE) 08/14/17 20:30 U Oth Cocaine Metabols Negative (NEGATIVE) 08/14/17 20:30 U Cannabinoids Screen Positive (NEGATIVE) H 08/14/17 20:30 Alcohol, Quantitative < 10 mg/dL (0-10) 08/14/17 20:10 HIV 1&2 Ag/Ab, 4th Gen Nonreactive (Nonreactive) 08/15/17 10:03 - Hospital Course Hospital Course: 27 yo F with PMH of migraines, asthma, and multiple UTI's in the past 3 months presents complaining of diffuse body aches. She also reported LLQ abdominal pain and left sided low back pain. These symptoms started yesterday morning ( day of admission). She denies fever, chills, dysuria, hematuria, chest pain, SOB , cough, diarrhea, constipation. She reported increased urinary frequency, nausea, and vomiting. Patient reported that she had recently been admitted to [facility] for similar symptoms, however she left AMA and did not complete treatment. She also reports extreme sadness, depression, guild, anhedonia, sleeplessness as well as sleeping too much, loss of appetite, lack of energy. She was treated for depression in the past, but without any medications. She does report a history of suicide attempts, twice, in adolescence. She now denies any thoughts of suicide, or violence towards others. In the ED, patient had an elevated WBC count and UA positive for UTI. Patient was admitted for sepsis 2/2 UTI. During hospital course, ID was consulted, abx recommendations were appreciated. Today, patient was seen and examined at bedside. Pt stated that her symptoms have improved. Urine cultures were positive for Serratia fonticola. ID recommended PO ciprofloxacin on discharge per sensitivities. HIV was negative. Psych was consulted and recommended outpatient workup for depression. Today, the patient was seen and examined at bedside. As patient's symptoms have improved and she has been afebrile for 24 hours, she was discharged. Pt was given an rx for a 7 day course of ciprofloxacin. Pt was advised to follow up with her PMD upon discharge. Patient was given Dr. Ham's information, however she can follow up with the psychiatrist of her choice. We will follow up with further STD workup. Discharge Diagnosis 1. Sepsis 2/2 UTI; sepsis resolved 2. Depression Discharge Medications - Ciprofloxacin 500 mg PO BID x7 days Discharge Exam - Head Exam Head Exam: ATRAUMATIC, NORMOCEPHALIC - Eye Exam Eye Exam: Normal appearance - ENT Exam ENT Exam: Normal Exam - Neck Exam Neck exam: Normal Inspection - Respiratory Exam Respiratory Exam: Clear to PA & Lateral. absent: Rales, Rhonchi, Wheezes - Cardiovascular Exam Cardiovascular Exam: RRR, +S1, +S2. absent: Gallop, Rubs - GI/Abdominal Exam GI & Abdominal Exam: Soft. absent: Distended, Guarding, Rebound, Tenderness - Rectal Exam Rectal Exam: Deferred - Extremities Exam Extremities exam: normal inspection - Back Exam Back exam: NORMAL INSPECTION. absent: CVA tenderness (L), CVA tenderness (R) - Neurological Exam Neurological exam: Alert, Oriented x3 - Psychiatric Exam Psychiatric exam: Normal Affect - Skin Skin Exam: Dry, Intact, Normal Color, Warm Discharge Plan - Discharge Medications Prescriptions: Ciprofloxacin [Cipro] 500 mg PO BID #14 tab - Follow Up Plan Condition: IMPROVED Disposition: HOME/ ROUTINE Instructions: Urinary Tract Infection in Women (DC), Depression (DC), Sepsis ( GEN) Additional Instructions: 1. Follow up with PMD within 1 week of discharge 2. Follow up with Psychiatrist of your choosing upon discharge 3. Complete 7 day course of ciprofloxacin twice a day 4. Resume home medications as prescribed 5. Return to ED if symptoms worsen Referrals: PCPBRIAN [Primary Care Provider] - Roman Ham MD [Staff Provider] - <Leslie Grace - Last Filed: 08/17/17 13:57> Provider - Provider Date of Admission: 08/14/17 19:21 Attending physician: Leslie Grace MD Primary care physician: BRIAN PRIMARY CARE PROVIDER Hospital Course - Lab Results Lab Results: Most Recent Lab Values WBC 9.9 10^3/ul (4.5-11.0) D 08/16/17 07:30 RBC 3.57 10^6/uL (3.5-6.1) 08/16/17 07:30 Hgb 9.8 g/dL (12.0-16.0) L 08/16/17 07:30 Hct 31.6 % (36.0-48.0) L 08/16/17 07:30 MCV 88.5 fl (80.0-105.0) 08/16/17 07:30 MCH 27.5 pg (25.0-35.0) 08/16/17 07:30 MCHC 31.0 g/dl (31.0-37.0) 08/16/17 07:30 RDW 15.1 % (11.5-14.5) H 08/16/17 07:30 Plt Count 132 10^3/uL (120.0-450.0) 08/16/17 07:30 MPV 12.9 fl (7.0-11.0) H 08/16/17 07:30 Gran % 64.8 % (50.0-68.0) 08/16/17 07:30 Lymph % (Auto) 18.9 % (22.0-35.0) L 08/16/17 07:30 [place] % (Auto) 15.6 % (1.0-6.0) H 08/16/17 07:30 Eos % (Auto) 0.6 % (1.5-5.0) L 08/16/17 07:30 Baso % (Auto) 0.1 % (0.0-3.0) 08/16/17 07:30 Gran # 6.44 (1.4-6.5) 08/16/17 07:30 Lymph # 1.9 (1.2-3.4) 08/16/17 07:30 [place] # 1.6 (0.1-0.6) H 08/16/17 07:30 Eos # 0.1 (0.0-0.7) 08/16/17 07:30 Baso # 0.01 K/mm3 (0.0-2.0) 08/16/17 07:30 Neutrophils % (Manual) 91 % (50.0-70.0) H 08/14/17 15:10 Band Neutrophils % 1 % (0-2) 08/14/17 15:10 Lymphocytes % (Manual) 5 % (22.0-35.0) L 08/14/17 15:10 Monocytes % (Manual) 3 % (1.0-6.0) 08/14/17 15:10 pO2 46 mm/Hg (30-55) 08/14/17 15:10 VBG pH 7.38 (7.32-7.43) 08/14/17 15:10 VBG pCO2 44.0 (40-60) 08/14/17 15:10 VBG HCO3 26.0 mmol/l (21-28) 08/14/17 15:10 VBG Total CO2 27.4 mmol.L (22-28) 08/14/17 15:10 VBG O2 Sat (Calc) 90.0 % (40-65) H 08/14/17 15:10 VBG Base Excess 0.5 mmol/L (0.0-2.0) 08/14/17 15:10 VBG Potassium 3.8 mmol/L (3.6-5.2) 08/14/17 15:10 Sodium 138.0 mmol/L (132-148) 08/14/17 15:10 Chloride 104.0 mmol/L (98-107) 08/14/17 15:10 Glucose 116 mg/dl (65-105) H 08/14/17 15:10 Lactate 1.6 mmol/L (0.7-2.1) 08/14/17 15:10 FiO2 21.0 % 08/14/17 15:10 Sodium 141 mmol/L (132-148) 08/16/17 07:30 Potassium 3.8 mmol/L (3.6-5.0) 08/16/17 07:30 Chloride 111 mmol/L (98-107) H 08/16/17 07:30 Carbon Dioxide 23 mmol/L (21-33) 08/16/17 07:30 Anion Gap 11 (10-20) 08/16/17 07:30 BUN 8 mg/dL (7-21) 08/16/17 07:30 Creatinine 0.5 mg/dl (0.7-1.2) L 08/16/17 07:30 Est GFR ( Amer) > 60 08/16/17 07:30 Est GFR (Non-Af Amer) > 60 08/16/17 07:30 Random Glucose 107 mg/dL (70-110) 08/16/17 07:30 Calcium 8.4 mg/dL (8.4-10.5) 08/16/17 07:30 Phosphorus 2.2 mg/dL (2.5-4.5) L 08/16/17 07:30 Magnesium 1.8 mg/dL (1.7-2.2) 08/16/17 07:30 Total Bilirubin 0.4 mg/dL (0.2-1.3) 08/16/17 07:30 AST 25 U/L (14-36) 08/16/17 07:30 ALT 27 U/L (7-56) 08/16/17 07:30 Alkaline Phosphatase 58 U/L (38-126) 08/16/17 07:30 Total Protein 6.7 g/dL (5.8-8.3) 08/16/17 07:30 Albumin 3.2 g/dL (3.0-4.8) 08/16/17 07:30 Globulin 3.5 gm/dL 08/16/17 07:30 Albumin/Globulin Ratio 0.9 (1.1-1.8) L 08/16/17 07:30 Procalcitonin 0.53 NG/ML (0.19-0.49) H 08/15/17 07:20 TSH 3rd Generation 0.53 mIU/mL (0.46-4.68) 08/15/17 13:00 Venous Blood Potassium 3.8 mmol/L (3.6-5.2) 08/14/17 15:10 Urine Color Yellow (YELLOW) 08/14/17 16:25 Urine Appearance Sl cloudy (CLEAR) 08/14/17 16:25 Urine pH 6.0 (4.7-8.0) 08/14/17 16:25 Ur Specific [place] 1.010 (1.005-1.035) 08/14/17 16:25 Urine Protein Trace mg/dL (<30 mg/dL) H 08/14/17 16:25 Urine Glucose (UA) Negative mg/dL (NEGATIVE) 08/14/17 16:25 Urine Ketones Trace mg/dL (NEGATIVE) H 08/14/17 16:25 Urine Blood Moderate (NEGATIVE) H 08/14/17 16:25 Urine Nitrate Negative (NEGATIVE) 08/14/17 16:25 Urine Bilirubin Negative (NEGATIVE) 08/14/17 16:25 Urine Urobilinogen 0.2 E.U./dL (<1 E.U./dL) 08/14/17 16:25 Ur Leukocyte Esterase Small Tiny/uL (NEGATIVE) H 08/14/17 16:25 Urine RBC 5 - 10 /hpf (0-2) 08/14/17 16:25 Urine WBC Tntc /hpf (0-6) 08/14/17 16:25 Ur Epithelial Cells 6 - 8 /hpf (0-5) 08/14/17 16:25 Urine Bacteria Mod (NEG) 08/14/17 16:25 Urine HCG, Qual Negative (NEGATIVE) 08/15/17 13:39 Urine Opiates Screen Negative (NEGATIVE) 08/14/17 20:30 Urine Methadone Screen Negative (NEGATIVE) 08/14/17 20:30 Ur Barbiturates Screen Negative (NEGATIVE) 08/14/17 20:30 Ur Phencyclidine Scrn Negative (NEGATIVE) 08/14/17 20:30 Ur Amphetamines Screen Negative (NEGATIVE) 08/14/17 20:30 U Benzodiazepines Scrn Negative (NEGATIVE) 08/14/17 20:30 U Oth Cocaine Metabols Negative (NEGATIVE) 08/14/17 20:30 U Cannabinoids Screen Positive (NEGATIVE) H 08/14/17 20:30 Alcohol, Quantitative < 10 mg/dL (0-10) 08/14/17 20:10 RPR Nonreactive (NONREACTIVE) 08/15/17 10:03 HIV 1&2 Ag/Ab, 4th Gen Nonreactive (Nonreactive) 08/15/17 10:03 Attending/Attestation - Attestation I have personally seen and examined this patient.: Yes I have fully participated in the care of the patient.: Yes I have reviewed all pertinent clinical information, including history, physical exam and plan: Yes Notes (Text): I have seen and examined the patient at bedside. Agree with the above note with the following additions/ exceptions: Briefly this is 27 year old female with history of migraines, asthma, anxiety, depression and multiple UTI's in the past 3 months came for evaluation of sepsis secondary to UTI. Urine culture revealed Serratia Fonticola sensitive to cipro. Patient was discharged on cipro as per ID. She remained afebrile for 24 hours. Last fever was at 4 pm yesterday. Patient is very eager to go home. GC test pending however she was treated with Zithro and Rocephin. Advised patient to call us to follow up on results. Upon discharge patient will follow up with Dr Marc within 3-[address] Leslie Grace
--- NOTE | 2017-08-16 16:33 | PN ---
DATE: 08/16/2017 SUBJECTIVE: Patient is seen earlier today in 568, bed 2. No fevers and she states she is much better. Her temperature is much improved and she did have a T-max of 100.5 last night. She has been afebrile this morning. OBJECTIVE: VITAL SIGNS: Blood pressure is 113/70, respiratory rate of 18. HEENT: Unremarkable. NECK: Supple. LUNGS: Have decreased breath sounds. HEART: Normal S1, S2. ABDOMEN: Soft, nontender. LABORATORY EXAMINATION: Reveals a white count of 9.9, hemoglobin of 9, platelets of 132. Chemistries reveals a BUN of 8, creatinine of 0.9, procalcitonin 0.53 and urinalysis is noted and serology is noted. HIV is negative. Microbiology reveals Serratia fonticola in the urine culture, it is sensitive to Cipro and blood cultures are no growth. ASSESSMENT AND PLAN: A 27-year-old female who is originally born in [facility], who has a history of asthma and kidney cyst and kidney stones, ALLERGIC TO IODINE AND SHELLFISH, admitted with sepsis with Serratia, left pyelonephritis with currently on ceftriaxone and doxycycline. The patient has a history of sexually transmitted disease. Sexually transmitted disease workup in progress. We will be able to be discharged once the patient is afebrile for 24 hours and last fever of 100.5, 1600 hours on 08/15. Maybe able to use p.o. Cipro. Pending the sexually transmitted disease workup and final culture results. Catarino العلي MD
[2017-08-16 16:39] VITALS: BP 109/73; PULSE 96; TEMP 98.7; O2SAT 97
--- NOTE | 2017-08-17 10:01 | PN ---
DATE: 08/16/2017 SUBJECTIVE: She is being seen today for a followup consultation. The patient is a 27-year-old female, seen at bedside, her boyfriend is in attendance. The patient originally was referred for psychiatric consultation for depression and history of suicide attempt. She was seen Dr. Ham yesterday and following up today. Medically, the patient was admitted to the hospital for generalized, not feeling well with body aches and chills. She has a history of asthma, UTI, gastroenteritis, and she has kidney cysts that she has been dealing with that she was just diagnosed when she went to [facility] a month ago. The patient indicates she does have some symptoms of depression; however, having discussed her background and her symptoms and what is going on with her with Dr. Ham yesterday, she is feeling hopeful, she is planning to follow up with a psychiatrist on outpatient basis, and she is not averse to taking medication. 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 I explained to her the confidentiality of psychiatric care and also further assessed her symptoms and her mood. The patient indicates she has a good support system. She is feeling better physically, and she is anticipating being discharged tomorrow morning. MENTAL STATUS EXAM: The patient is alert and oriented x3. Her eye contact is good. Her behavior is pleasant and cooperative. Speech rate and volume are within normal limits. The patient is bright and articulate. Mood today is euthymic. Affect is full. Her thoughts are goal directed. She denies being suicidal or homicidal. She denies the presence of hallucinations, delusions, or paranoia. Her concentration and focus, she indicates, are good. Her memory, both short and nursing home, appear adequate. Her appetite and her sleep, she indicates, are good at this point in time. PHYSICAL EXAMINATION VITAL SIGNS: The patient's current vital signs include temperature of 98.7, pulse rate of 96, blood pressure of 109/73, and O2 saturation of 97%. The patient's most recent urine culture indicates a final results of Serratia fonticola. In terms of her blood, there is no growth after 48 hours; however, the gram stain is pending on that. She indicates that she will be following up medically upon discharge as well. DIAGNOSTIC IMPRESSION: Major depression, recurrent, moderate without psychotic features; marijuana use disorder; migraines; asthma; multiple urinary tract infections; polycystic kidneys. PLAN: The patient denies being suicidal or homicidal and appears in no imminent danger of herself or others. She is interested in following up psychiatrically at discharge and she appears to really want to do this. She indicates also that she is willing to think about not smoking pot, education in terms of the effect of use of marijuana on depression and anxiety was gone over, the patient is willing to work on this as well. She also has plans to follow up medically. She is psychiatrically cleared as in agreement with Dr. Ham's assessment as of yesterday. Thank you for the consult. Aure Crouch APN Roman Ham MD MATEO
== END 2017-08-16 18:30 | disposition home or self-care (01) | DRG 901 ==
LOC: ED 14:28 → ERH 19:21 → 5RNO 21:38
PROVIDERS: ADMIT Internal Medicine; ATTEND Hospitalist
DX: A41.9 Sepsis, unspecified organism (principal); N12 Tubulo-interstitial nephritis, not specified as acute or chronic; F33.1 Major depressive disorder, recurrent, moderate; F41.9 Anxiety disorder, unspecified; G43.909 Migraine, unspecified, not intractable, without status migrainosus; J45.909 Unspecified asthma, uncomplicated; F12.90 Cannabis use, unspecified, uncomplicated; N28.1 Cyst of kidney, acquired; Q61.3 Polycystic kidney, unspecified; Z91.5 Personal history of self-harm; Z86.19 Personal history of other infectious and parasitic diseases; Z87.440 Personal history of urinary (tract) infections; Z87.442 Personal history of urinary calculi

== ENCOUNTER 2017-10-31 00:26 | Emergency (ER) | payer MEDICAID ==
[2017-10-31 00:27] VITALS: BMI 25.7
[2017-10-31] MEDS ORDERED: Sodium Chloride 0.9% 1,000 ML IV SCH (00:45)
--- NOTE | 2017-10-31 00:45 | ED PDOC ---
Arrival/HPI - General Chief Complaint: GI Problem Time Seen by Provider: 10/31/17 00:35 Historian: Patient - History of Present Illness Narrative History of Present Illness (Text): 10/31/17 00:41 A 27 year old female, with no significant past medical history, presents to the emergency department complaining of 1 day duration cough, body aches, chills, vomiting, and fever. The patient denies headache, dizziness, chest pain, shortness of breath, dyspnea on exertion, abdominal pain, nausea, diarrhea, urinary/bowel changes, or any other complaint. PMD: Dr. Wolf Time/Duration: Other (1 Day) Symptom Onset: Sudden Symptom Course: Unchanged Activities at Onset: Rest, Light Context: Home Past Medical History - Provider Review Nursing Documentation Reviewed: Yes - Infectious Disease Hx of Infectious Diseases: None - Cardiac Hx Cardiac Disorders: No - Pulmonary Hx Asthma: Yes - Neurological Hx Neurological Disorder: No - HEENT Hx HEENT Disorder: No - Renal Hx Pyelonephritis: Yes - Endocrine/Metabolic Hx Endocrine Disorders: No - Hematological/Oncological Hx Blood Disorders: No - Integumentary Hx Dermatological Disorder: No - Musculoskeletal/Rheumatological Hx Musculoskeletal Disorders: No Hx Falls: No - Gastrointestinal Hx Gastrointestinal Disorders: No - Genitourinary/Gynecological Hx Genitourinary Disorders: No - Psychiatric Hx Psychophysiologic Disorder: No Hx Substance Use: Yes - Surgical History Other/Comment: Benign cyst removed from right breast. - Anesthesia Hx Anesthesia: No Hx Anesthesia Reactions: No Hx Malignant Hyperthermia: No Family/Social History - Physician Review Nursing Documentation Reviewed: Yes Family/Social History: No Known Family HX Smoking Status: Never Smoked Hx Alcohol Use: Yes Hx Substance Use: Yes Allergies/Home Meds Allergies/Adverse Reactions: Allergies iodine Allergy (Verified 10/31/17 00:33) ANAPHYLAXIS Shellfish Allergy (Uncoded 10/31/17 00:33) ANAPHYLAXIS Review of Systems - Physician Review All systems were reviewed & negative as marked: Yes - Review of Systems Constitutional: Fevers Respiratory: Cough. absent: SOB Cardiovascular: absent: Chest Pain, JUAREZ Gastrointestinal: Vomiting. absent: Abdominal Pain, Diarrhea, Nausea Genitourinary Female: absent: Urine Output Changes Musculoskeletal: Myalgias (Body aches.) Neurological: absent: Headache, Dizziness Physical Exam Vital Signs Reviewed: Yes Vital Signs Temp Pulse Resp BP Pulse Ox 10/31/17 02:30 98.2 F 96 H 17 115/78 100 10/31/17 00:34 98.3 F 106 H 18 127/74 98 Temperature: Afebrile Blood Pressure: Normal Pulse: Tachycardic Respiratory Rate: Normal Appearance: Positive for: Well-Appearing, Non-Toxic, Comfortable Pain Distress: None Mental Status: Positive for: Alert and Oriented X 3 - Systems Exam Head: Present: Atraumatic, Normocephalic Pupils: Present: PERRL Extroacular Muscles: Present: EOMI Conjunctiva: Present: Normal Mouth: Present: Moist Mucous Membranes Neck: Present: Normal Range of Motion Respiratory/Chest: Present: Clear to Auscultation, Good Air Exchange. No: Respiratory Distress, Accessory Muscle Use Cardiovascular: Present: Regular Rate and Rhythm, Normal S1, S2. No: Murmurs Abdomen: Present: Normal Bowel Sounds. No: Tenderness, Distention, Peritoneal Signs Back: Present: Normal Inspection Upper Extremity: Present: Normal Inspection. No: Cyanosis, Edema Lower Extremity: Present: Normal Inspection. No: Edema Neurological: Present: GCS=15, CN II-XII Intact, Speech Normal Skin: Present: Warm, Dry, Normal Color. No: Rashes Psychiatric: Present: Alert, Oriented x 3, Normal Insight, Normal Concentration Medical Decision Making ED Course and Treatment: 10/31/17 00:44 Impression: A 27 year old female presents to the emergency department complaining of 1 day duration fevers, chills, body aches, cough and vomiting. Plan: -- Urinalysis -- Labs -- IV Fluids -- Reassess and disposition Progress Notes: - Lab Interpretations Lab Results: 10/31/17 00:55 10/31/17 00:55 Lab Results 10/31/17 01:00: Urine Color Yellow, Urine Appearance Clear, Urine pH 8.0, Ur Specific [place] 1.020, Urine Protein Negative, Urine Glucose (UA) Negative, Urine Ketones 40 H, Urine Blood Moderate H, Urine Nitrate Negative, Urine Bilirubin Negative, Urine Urobilinogen 0.2, Ur Leukocyte Esterase Negative, Urine RBC 5 - 10, Urine WBC 2 - 5, Ur Epithelial Cells 10 - 12, Urine Bacteria Mod, Urine Other Mucus 10/31/17 00:55: Sodium 140, Potassium 3.4 L, Chloride 104, Carbon Dioxide 25, Anion Gap 15, BUN 9, Creatinine 0.6 L, Est GFR ( Amer) > 60, Est GFR (Non -Af Amer) > 60, Random Glucose 108, Calcium 9.9, Total Bilirubin 0.5, AST 22, ALT 28, Alkaline Phosphatase 57, Total Protein 7.8, Albumin 4.3, Globulin 3.5, Albumin/Globulin Ratio 1.2 10/31/17 00:55: Influenza Typ A,B (EIA) Negative for flu a/b 10/31/17 00:55: WBC 8.2, RBC 4.49, Hgb 13.4 D, Hct 38.2, MCV 85.1 D, MCH 29.8 , MCHC 35.1, RDW 13.3, Plt Count 136, MPV 12.4 H, Gran % 84.9 H, Lymph % (Auto) 7.2 L, Webb % (Auto) 7.2 H, Eos % (Auto) 0.6 L, Baso % (Auto) 0.1, Gran # 6.97 H , Lymph # (Auto) 0.6 L, Webb # (Auto) 0.6, Eos # (Auto) 0.1, Baso # (Auto) 0.01 I have reviewed the lab results: Yes - Medication Orders Current Medication Orders: Discontinued Medications Acetaminophen (Tylenol 325mg Tab) 650 mg PO STAT STA Stop: 10/31/17 00:46 Last Admin: 10/31/17 01:12 Dose: 650 mg Sodium Chloride (Sodium Chloride 0.9%) 1,000 mls @ 1,000 mls/hr IV .Q1H SABINA Last Admin: 10/31/17 01:11 Dose: 1,000 mls/hr eMAR Start Stop Document 10/31/17 01:11 IT (Rec: 10/31/17 01:12 IT [id number]) Intravenous Solution Start Date 10/31/17 Start Time 01:12 End Date 10/31/17 End time 02:12 Total Infusion Time 60 Nitrofurantoin Macrocrystals (Macrobid) 100 mg PO STAT STA PRN Reason: Protocol Stop: 10/31/17 02:11 Last Admin: 10/31/17 02:27 Dose: 100 mg Oseltamivir Phosphate (Tamiflu Cap) 75 mg PO STAT STA PRN Reason: Protocol Stop: 10/31/17 02:11 Last Admin: 10/31/17 02:27 Dose: 75 mg - Scribe Statement The provider has reviewed the documentation as recorded by the Zeke Keys Provider Zeke Attestation: All medical record entries made by the Everardoibfrancis were at my direction and personally dictated by me. I have reviewed the chart and agree that the record accurately reflects my personal performance of the history, physical exam, medical decision making, and the department course for this patient. I have also personally directed, reviewed, and agree with the discharge instructions and disposition. Disposition/Present on Arrival - Present on Arrival Any Indicators Present on Arrival: No History of DVT/PE: No History of Uncontrolled Diabetes: No Urinary Catheter: No History of Decub. Ulcer: No History Surgical Site Infection Following: None - Disposition Have Diagnosis and Disposition been Completed?: Yes Diagnosis: Influenza, Urinary tract infection Disposition: HOME/ ROUTINE Disposition Time: 02:30 Condition: GOOD Discharge Instructions (ExitCare): Urinary Tract Infections in Adults, Flu Prescriptions: Nitrofurantoin Macrocrystals [Macrobid] 100 mg PO BID #14 cap Oseltamivir [Tamiflu] 75 mg PO BID #10 cap Referrals: Laura Wolf MD [Primary Care Provider] - Follow up with primary Forms: [employer] ([place])
[2017-10-31 01:18] LABS: ALB/GLOB RATIO 1.2 (1.1-1.8); ALBUMIN 4.3 g/dL (3.0-4.8); ALT/SGPT 28 U/L (7-56); AST/SGOT 22 U/L (14-36); BLOOD UREA NITROGEN 9 mg/dL (7-21); CALCIUM 9.9 mg/dL (8.4-10.5); GFR AFRICAN-AMERICAN > 60; GFR NON-AFRICAN AMERICAN > 60
[2017-10-31 01:23] LABS: URINE BILIRUBIN NEGATIVE (NEGATIVE); URINE BLOOD MODERATE (NEGATIVE); URINE GLUCOSE (UA) NEGATIVE (NEGATIVE); URINE LEUKOCYTE ESTERASE NEGATIVE Leu/uL (NEGATIVE); URINE PROTEIN NEGATIVE mg/dL (<30 mg/dL); URINE UROBILINOGEN 0.2 E.U./dL (<1 E.U./dL)
[2017-10-31 01:24] LABS: BASO # 0.01 K/mm3 (0.0-2.0); BASO % 0.1 % (0.0-3.0); EOS # 0.1 (0.0-0.7); EOS % 0.6 % (1.5-5.0); GRAN # 6.97 (1.4-6.5); GRAN % 84.9 % (50.0-68.0); HEMOGLOBIN 13.4 g/dL (12.0-16.0); LYMPH # 0.6 (1.2-3.4); LYMPH % 7.2 % (22.0-35.0); MEAN CELL VOLUME 85.1 fl (80.0-105.0); MEAN CORPUSCULAR HEMOGLOBIN 29.8 pg (25.0-35.0); MEAN CORPUSCULAR HGB CONC 35.1 g/dl (31.0-37.0); MEAN PLATELET VOLUME 12.4 fl (7.0-11.0); MONO # 0.6 (0.1-0.6); MONO % 7.2 % (1.0-6.0); RBC 4.49 10^6/uL (3.5-6.1); RED CELL DISTRIBUTION WIDTH 13.3 % (11.5-14.5); WHITE BLOOD COUNT 8.2 10^3/ul (4.5-11.0)
[2017-10-31 01:28] LABS: URINE APPEARANCE CLEAR (CLEAR); URINE COLOR YELLOW (YELLOW)
[2017-10-31 01:42] LABS: URINE BACTERIA MOD (NEG)
[2017-10-31 02:31] VITALS: BP 115/78; PULSE 96; RESP 17; TEMP 98.2; O2SAT 100
== END 2017-10-31 02:31 | disposition home or self-care (01) ==
LOC: ED 00:26
DX: N39.0 Urinary tract infection, site not specified (principal); J11.1 Influenza due to unidentified influenza virus with other respiratory manifestations
CPT/HCPCS: 80053; 81001; 85025; 87804; 96360; 99284; J7040